=== PATIENT | male | born 1950 | race African-American/Black ===

== ENCOUNTER 2022-01-12 23:12 | Emergency (ER) | payer MEDICARE ==
[~2022-01-12] VITALS: Ht 182.9 cm; Wt 62.8 kg
[2022-01-12 23:52] LABS: HEMOGLOBIN. 14.8 g/dL (14.0-18.0); MEAN CORPUSCULAR HEMOGLOBIN 31.5 pg (28.0-32.0); MEAN CORPUSCULAR VOLUME 95.6 fL (80.0-94.0); MEAN PLATELET VOLUME 8.9 fl (7.4-10.4); PLATELET 205 x1000/uL (130-400); RED BLOOD CELL COUNT 4.71 mill/uL (4.7-6.1); RED CELL DISTRIBUTION WIDTH 15.2 % (11.6-14.6)
[2022-01-12] MEDS ORDERED: IOHEXOL-350 100 ML BOTTLE ONE (23:52)
[2022-01-13 00:12] LABS: CHLORIDE 102 mEq/L (98-107)
[2022-01-13 00:23] LABS: ETHANOL BLOOD 125 mg/dL
[2022-01-13] MEDS ORDERED: ASPIRIN 325MG EC TABLET PO ONE (00:45)
[2022-01-13 01:49] LABS: CLARITY URINE CLEAR (CLEAR); COLOR URINE YELLOW (YELLOW); KETONES URINE 1+ (NEGATIVE); LEUKOCYTE ESTERASE URINE NEGATIVE (NEGATIVE); NITRITE URINE NEGATIVE (NEGATIVE); OCCULT BLOOD URINE TRACE (NEGATIVE); PROTEIN URINE 1+ (NEGATIVE); SPECIFIC GRAVITY URINE 1.033 (1.005-1.030); UROBILINOGEN URINE 0.2 E.U./dL (0.2-1.0)
[2022-01-13 02:08] LABS: *AMPHETAMINES SCREEN URINE NEGATIVE (NEGATIVE); *BARBITURATES SCREEN URINE NEGATIVE (NEGATIVE); *BENZODIAZEPINES SCREEN URINE NEGATIVE (NEGATIVE); *COCAINE SCREEN URINE NEGATIVE (NEGATIVE); CANNABINOID URINE SCREEN PRESUMTIVE POSITIVE (NEGATIVE); METHADONE URINE SCREEN NEGATIVE (NEGATIVE); OPIATES URINE SCREEN NEGATIVE (NEGATIVE); PHENCYCLIDINE URINE SCREEN NEGATIVE (NEGATIVE)
[2022-01-13] MEDS ORDERED: VISCOUS LIDOCAINE 2% 15 ML UDC PO NR (03:45)
[2022-01-13] MEDS ORDERED: MAGNESIUM/ALUMINUM HYDROXIDE/SIMETHICONE 30ML UDC PO NR (03:45)
[2022-01-13 04:46] LABS: PLATELET ESTIMATE NORMAL
[2022-01-13 09:00] VITALS: BP 172/60
== END 2022-01-13 09:53 | disposition left against medical advice (07) ==
LOC: ER 23:12
DX: I63.9 Cerebral infarction, unspecified (principal); F12.10 Cannabis abuse, uncomplicated; R77.8 Other specified abnormalities of plasma proteins; F10.229 Alcohol dependence with intoxication, unspecified; Y90.6 Blood alcohol level of 120-199 mg/100 ml
CPT/HCPCS: 36415; 70450; 70496; 70498; 71045; 80053; 80305; 80320; 81003; 83880; 84484; 85025; 93005; 99291; Q9967; G0480